=== PATIENT | male | born 1985 | race Asian ===

== ENCOUNTER 2020-04-13 17:17 | Emergency (ER) | payer OTHER ==
[~2020-04-13] VITALS: Ht 172.7 cm; Wt 79.4 kg
[2020-04-13] MEDS ORDERED: PHEN50CH2 PO (17:35)
[2020-04-13 19:00] VITALS: BP 116/77; TEMP 98.8
== END 2020-04-13 19:00 | disposition home or self-care (01) ==
LOC: ED 17:17
DX: S39.012A Strain of muscle, fascia and tendon of lower back, initial encounter (principal); Z03.818 Encounter for observation for suspected exposure to other biological agents ruled out
CPT/HCPCS: 81000; 87635; 99283; U0003